=== PATIENT | male | born 1990 | race Caucasian/White ===

== ENCOUNTER 2020-12-29 09:13 | Emergency (ER) | payer OTHER ==
[~2020-12-29] VITALS: Ht 180.3 cm; Wt 129.3 kg
[2020-12-29] MEDS ORDERED: PREDNISONE 10 M10 MG PO (11:11)
[2020-12-29] MEDS ORDERED: FLEXERIL PO (11:11)
[2020-12-29] MEDS ORDERED: ACYCLOVIR 400400 MG PO (11:11)
[2020-12-29 11:22] VITALS: BP 155/90
== END 2020-12-29 11:23 | disposition home or self-care (01) ==
LOC: M.ERS 09:13
DX: S46.911A Strain of unspecified muscle, fascia and tendon at shoulder and upper arm level, right arm, initial encounter (principal); Z20.822 Contact with and (suspected) exposure to COVID-19; G51.0 Bell's palsy; X58.XXXA Exposure to other specified factors, initial encounter; Y93.89 Activity, other specified; Y92.89 Other specified places as the place of occurrence of the external cause; Y99.8 Other external cause status